=== PATIENT | male | born 1970 | race Caucasian/White ===

== ENCOUNTER 2022-08-07 06:17 | Day surgery (SDC) | payer OTHER ==
[2022-08-06 14:34] LABS: COVID AG,FIA SOURCE NASAL SWAB
[~2022-08-07 06:17] MED LIST: ASPI-1450 PO; ATOR40TA28 PO; CYCLOPENTOLATE HCL 1% 2 ML OPHTHALMIC SOLUTION ONE; ERTU5TAB; ERTU5TAB PO; GABA-1181 PO; KETOROLAC TROMETHAMINE 0.5% 5 ML OPHTHALMIC SOLUTION ONE; LINA5TAB PO; LOSA-382 PO; METF-81 PO; METO25 PO; MOXIFLOXACIN HCL 0.5% 3 ML OPHTHALMIC SOLUTION ONE; PHENYLEPHRINE HCL 2.5% 2 ML OPHTHALMIC SOLUTION ONE; RINGERS SOLUTION,LACTATED 500 ML IV ONE; TETRACAINE HCL/PF 0.5% 4 ML OPHTHALMIC SOLUTION ONE; TROPICAMIDE 1% 2 ML OPHTHALMIC SOLUTION ONE
[2022-08-07] MEDS ORDERED: MIDAZOLAM HCL 2 MG/2 ML VIAL IVP ONE (06:18)
[2022-08-07] MEDS ORDERED: FentaNYL CITRATE PF 100 MCG/2 ML VIAL IVP ONE (06:18)
[2022-08-07] MEDS ORDERED: HYALURONATE SOD 8.5MG/0.85ML 10 MG/ML SYRINGE IO ONE (06:18)
[2022-08-07] MEDS ORDERED: POVIDONE-IODINE 5% 30 ML OPHTHALMIC SOLUTION OD ONE (06:18)
[2022-08-07] MEDS ORDERED: LIDOCAINE/PF 1% 2 ML VIAL CAUDAL ONE (06:18)
[2022-08-07] MEDS ORDERED: EPINEPHrine 1:1,000 [1 MG/ML] VIAL ET ONE (06:18)
[2022-08-07] MEDS ORDERED: BALANCED SALT 15 ML OPHTHALMIC IRRIG.SOLN IO ONE (06:18)
[2022-08-07] MEDS ORDERED: PrednisoLONE ACETATE 1% 5 ML OPHTHALMIC SUSPENSION AD ONE (06:18)
[2022-08-07] MEDS ORDERED: TETRACAINE HCL/PF 0.5% 4 ML OPHTHALMIC SOLUTION OD ONE ×2 (06:18→07:00)
[2022-08-07] MEDS ORDERED: NEOMYCIN/POLYMYXIN B/DEXAMETH 3.5 GM OPHTHALMIC OINTMENT OD ONE (06:18)
[2022-08-07] MEDS: PHENYLEPHRINE HCL 2.5% 2 ML OPHTHALMIC SOLUTION OD SCH ×3 (07:19→07:31)
[2022-08-07] MEDS: MOXIFLOXACIN HCL 0.5% 3 ML OPHTHALMIC SOLUTION OD SCH ×3 (07:19→07:31)
[2022-08-07] MEDS: TROPICAMIDE 1% 2 ML OPHTHALMIC SOLUTION OD SCH ×3 (07:19→07:31)
[2022-08-07] MEDS: CYCLOPENTOLATE HCL 1% 2 ML OPHTHALMIC SOLUTION OD SCH ×3 (07:20→07:31)
[2022-08-07] MEDS: TETRACAINE HCL/PF 0.5% 4 ML OPHTHALMIC SOLUTION OD SCH ×3 (07:25→07:31)
[2022-08-07] MEDS: KETOROLAC TROMETHAMINE 0.5% 5 ML OPHTHALMIC SOLUTION OD SCH ×3 (07:26→07:31)
[2022-08-07 07:36] LABS: GLUCOMETER DEV NAME(LOC) SDS.; GLUCOSE,POINT OF CARE 154 MG/DL (70-110)
== END 2022-08-07 09:05 | disposition home or self-care (01) ==
LOC: SURGERY 06:17
PROVIDERS: ATTEND Ophthalmology
DX: E11.36 Type 2 diabetes mellitus with diabetic cataract (principal); H25.12 Age-related nuclear cataract, left eye; F17.210 Nicotine dependence, cigarettes, uncomplicated; I10 Essential (primary) hypertension; I25.2 Old myocardial infarction; Z72.89 Other problems related to lifestyle; Z98.890 Other specified postprocedural states; Z20.822 Contact with and (suspected) exposure to COVID-19; Z79.899 Other long term (current) drug therapy
CPT/HCPCS: 93005; 87426; 66982; 82962; C9803; J0171; J3010; J3490; J2250; Q9967; J7120; V2632

== ENCOUNTER 2022-09-04 05:48 | Day surgery (SDC) | payer OTHER ==
[~2022-09-04] VITALS: Ht 182.9 cm; Wt 118.0 kg
[~2022-09-04 05:48] MED LIST changes: -RINGERS SOLUTION,LACTATED 500 ML IV ONE
[2022-09-04] MEDS ORDERED: FentaNYL CITRATE PF 100 MCG/2 ML VIAL IVP ONE (05:49)
[2022-09-04] MEDS ORDERED: MIDAZOLAM HCL 2 MG/2 ML VIAL IVP ONE (05:49)
[2022-09-04 06:08] LABS: COVID AG,FIA SOURCE NASAL SWAB
[2022-09-04] MEDS: KETOROLAC TROMETHAMINE 0.5% 5 ML OPHTHALMIC SOLUTION OS SCH ×3 (06:21→06:33)
[2022-09-04] MEDS: MOXIFLOXACIN HCL 0.5% 3 ML OPHTHALMIC SOLUTION OS SCH ×3 (06:21→06:33)
[2022-09-04] MEDS: CYCLOPENTOLATE HCL 1% 2 ML OPHTHALMIC SOLUTION OS SCH ×3 (06:21→06:32)
[2022-09-04] MEDS: PHENYLEPHRINE HCL 2.5% 2 ML OPHTHALMIC SOLUTION OS SCH ×3 (06:21→06:32)
[2022-09-04] MEDS: TROPICAMIDE 1% 2 ML OPHTHALMIC SOLUTION OS SCH ×3 (06:21→06:32)
[2022-09-04] MEDS: TETRACAINE HCL/PF 0.5% 4 ML OPHTHALMIC SOLUTION OS SCH ×3 (06:22→06:33)
[2022-09-04 07:06] LABS: GLUCOMETER DEV NAME(LOC) SDS.; GLUCOSE,POINT OF CARE 192 MG/DL (70-110)
[2022-09-04] MEDS ORDERED: TETRACAINE HCL/PF 0.5% 4 ML OPHTHALMIC SOLUTION OS ONE ×2 (08:00→12:00)
[2022-09-04] MEDS ORDERED: LIDOCAINE/PF 1% 2 ML VIAL IM ONE (12:00)
[2022-09-04] MEDS ORDERED: EPINEPHrine 1:1,000 [1 MG/ML] VIAL IM ONE (12:00)
[2022-09-04] MEDS ORDERED: BALANCED SALT 15 ML OPHTHALMIC IRRIG.SOLN OS ONE (12:00)
[2022-09-04] MEDS ORDERED: NEOMYCIN/POLYMYXIN B/DEXAMETH 3.5 GM OPHTHALMIC OINTMENT OS ONE (12:00)
[2022-09-04] MEDS ORDERED: PrednisoLONE ACETATE 1% 5 ML OPHTHALMIC SUSPENSION OS ONE (12:00)
[2022-09-04] MEDS ORDERED: POVIDONE-IODINE 5% 30 ML OPHTHALMIC SOLUTION OS ONE (12:00)
[2022-09-04] MEDS ORDERED: HYALURONATE SOD 8.5MG/0.85ML 10 MG/ML SYRINGE IO ONE (12:00)
== END 2022-09-04 08:30 | disposition home or self-care (01) ==
LOC: SURGERY 05:48
PROVIDERS: ATTEND Ophthalmology
DX: E11.36 Type 2 diabetes mellitus with diabetic cataract (principal); H25.12 Age-related nuclear cataract, left eye; I25.2 Old myocardial infarction; E78.00 Pure hypercholesterolemia, unspecified; F17.210 Nicotine dependence, cigarettes, uncomplicated; Z95.5 Presence of coronary angioplasty implant and graft; Z98.41 Cataract extraction status, right eye; Z87.01 Personal history of pneumonia (recurrent); Z98.890 Other specified postprocedural states
CPT/HCPCS: 66982; 82962; 87426; J0171; J3010; J3490; J2250; Q9967; V2632; C9803